=== PATIENT | male | born 2000 | race Caucasian/White ===

== ENCOUNTER 2020-07-12 18:04 | Emergency (ER) | payer MEDICAID ==
--- NOTE | 2020-07-12 18:42 | EDM.PDOC ---
ED HPI GENERAL MEDICAL PROBLEM - General Chief Complaint: Skin Complaint Stated Complaint: Abrasions to top of left foot Time Seen by Provider: 07/12/20 18:25 Source of Information: Reports: Patient History Limitations: Reports: No Limitations - History of Present Illness INITIAL COMMENTS - FREE TEXT/NARRATIVE: Patient comes emergency department today from home with concerns of a skin irritation on the left dorsum of his foot. This patient noticed a couple of days ago that he had area of redness on the top of his foot. Really not overtly painful. It does not itch. Does not burn. He does not relate any trauma or injury to his left foot. He relates that he noticed it after he was at work all day wearing his boots. He noted that the rash is not getting any better since yesterday so he came to the emergency department. No fever no chills. No weakness dizziness lightheadedness. No trauma to his feet. He has not tried any therapies. No Covid exposure no Covid symptoms. - Related Data Allergies Allergy/AdvReac Type Severity Reaction Status Date / Time No Known Allergies Allergy Verified 07/12/20 18:27 Home Meds: Home Meds . [No Known Home Meds] 07/12/20 [History] Past Medical History - Past Health History Medical/Surgical History: Denies Medical/Surgical History ED ROS GENERAL - Review of Systems Review Of Systems: Comprehensive ROS is negative, except as noted in HPI. ED EXAM, SKIN/RASH Exam: See Below Text/Narrative:: This is alert appropriate 19-year-old male who is in hygienic arrest. Exam Limited By: No Limitations General Appearance: Alert, WD/WN, No Apparent Distress Peripheral Pulses: 2+: Posterior Tibial (L), Posterior Tibial (R), Dorsalis Pedis (L), Dorsalis Pedis (R) Extremities: Other (Continuation of inspection really areas on the contact dorsal aspect of the foot that would be in contact with the shoe. This really appears to be some type of excoriation from repetitive rubbing or irritation. That is noninfectious appearing. Does not appear fungal or inflammatory in nature. ). No: Normal Inspection (Exam is primarily isolated to the left and right feet. The right foot is unremarkable other than a ingrown toenail to the right great toe on the lateral aspect which is not appear to be acutely infectious. On the left foot pretty much the entire dorsum of the foot.) Neurological: Alert, Oriented Psychiatric: Normal Affect, Normal Mood Course - Re-Assessments/Exams Free Text/Narrative Re-Assessment/Exam: 07/12/20 18:45 This really appears when I examined his foot to be some type of repetitive abrasive type irritation to the skin causing some skin breakdown. Is not infectious appearing. It does not appear fungal or inflammatory in nature. As of note this patient is also in hygienic arrest and really could benefit from some good hygiene. I think at this time the best course of action is to change his shoes which are very ill-appearing in the emergency department as well. Some good hygiene of his foot topical bacitracin and prevention of continued trauma to his foot as he relates that his foot does rub on his boot when he is walking and he gets sore sometimes. This is not improving he is to recheck in the clinic. Is understanding this and his questions are answered. Departure - Departure Time of Disposition: 18:36 Disposition: Home, Self-Care 01 Clinical Impression: Abrasion, foot w/o infection - Discharge Information Instructions: Abrasion, [id number] Referrals: Daren Hutchins PA-C [Primary Care Provider] - Additional Instructions: Cleanse twice daily with soap and water. Allow to dry well. Apply bacitracin twice daily topical this can be purchased OTC. Watch for signs of infection. Make sure and protect that area from your shoes until healed. Recheck in the clinic if not improving. Make sure and clean your boots and shoes and that they fit appropriately to prevent damage to your skin.
== END 2020-07-12 18:46 | disposition home or self-care (01) ==
LOC: VM.ED 18:04
DX: S90.812A Abrasion, left foot, initial encounter (principal); X58.XXXA Exposure to other specified factors, initial encounter
CPT/HCPCS: 99283